=== PATIENT | female | born 1945 | race Caucasian/White ===

== ENCOUNTER 2018-12-31 16:00 | Observation (INO) | payer MEDICARE, BC ==
[~2018-12-31] VITALS: Ht 151.1 cm; Wt 76.5 kg
[2018-12-31 15:23] VITALS: BP 128/60
[~2018-12-31 16:00] MED LIST: LOSA50TA64 PO; PANT40TA25 PO; TYL3 PO
[2018-12-31] MEDS: CEFAZOLIN SODIUM 1 GM VIAL IVP SCH (17:00)
[2019-01-01] VITALS (20 sets, daily range): BP systolic 107–152; BP diastolic 51–69
[2019-01-01] MEDS ORDERED: LACTATED RINGERS 1000ML 1,000 ML IV ONE (11:30)
[2019-01-01] MEDS ORDERED: CEFAZOLIN SODIUM 1 GM VIAL ONE (16:50)
[2019-01-01] MEDS ORDERED: ROCURONIUM 10MG/1ML SYR 10 MG/ML ML ONE (17:04)
[2019-01-01] MEDS ORDERED: SUCCINYLCHOLINE 200MG/10ML SYR ONE (17:04)
[2019-01-01] MEDS ORDERED: FENTANYL CITRATE PF 50 MCG/1 ML 2ML VIAL ONE (17:04)
[2019-01-01] MEDS ORDERED: LIDOCAINE PF 2% 5ML ABBOJECT ONE (17:04)
[2019-01-01] MEDS ORDERED: PROPOFOL 10 MG/ML 20ML VIAL IV ONE (17:04)
[2019-01-01] MEDS ORDERED: ROPIVACAINE 0.5% 5MG/ML 30ML IJ ONE (17:08)
[2019-01-01] MEDS ORDERED: DEXAMETHASONE SOD PHOSPHATE 4 MG/ML 1ML VIAL ONE (17:08)
[2019-01-01] MEDS ORDERED: MIDAZOLAM HCL 1 MG/ML 2ML VIAL ONE (17:13)
[2019-01-01] MEDS ORDERED: EPHEDRINE SULFATE 50 MG/ML AMPULE ONE (17:36)
[2019-01-01] MEDS: CEFAZOLIN SODIUM 1 GM VIAL IVP SCH (17:38)
[2019-01-01] MEDS ORDERED: HYDRALAZINE HCL 20 MG/ML VIAL ONE (18:29)
[2019-01-01] MEDS ORDERED: ONDANSETRON HCL 4 MG/2 ML VIAL ONE (20:15)
[2019-01-01] MEDS: SODIUM CHLORIDE 0.9% 1000ML 1,000 ML IV SCH (20:44)
[2019-01-01] MEDS ORDERED: POTASSIUM CHLORIDE 10% ELIXIR 20 MEQ/15 ML UDCUP PO PRN (20:45)
[2019-01-01] MEDS ORDERED: POTASSIUM CHLORIDE 20 MEQ ERTAB PO PRN (20:45)
[2019-01-01] MEDS ORDERED: DiphenhydrAMINE HCL 50 MG/ML VIAL IVP PRN (20:45)
[2019-01-01] MEDS ORDERED: DIPHENHYDRAMINE HCL 25 MG CAPSULE PO PRN (20:45)
[2019-01-01] MEDS ORDERED: HYDROCODONE/ACETAMINOPHEN 5/325 MG TAB PO PRN (20:45)
[2019-01-01] MEDS ORDERED: LIDOCAINE HCL-MPF 1% 2ML VIAL IVP PRN (20:45)
[2019-01-01] MEDS ORDERED: POTASSIUM CHLORIDE 20MEQ/100ML 100 ML IV PRN (20:45)
[2019-01-01] MEDS: ACETAMINOPHEN EXTRA STRENGTH 500 MG TABLET PO SCH (20:45)
[2019-01-01] MEDS ORDERED: KETOROLAC TROMETHAMINE 30MG/ML ONE (20:51)
[2019-01-01] MEDS ORDERED: MEPERIDINE-PF 25 MG/ML SYG ONE ×2 (21:03→21:15)
--- NOTE | 2019-01-01 21:45 | NUR ---
post op received patient from pacu via bed, patient asleep, easily awoken, no sob, no c/o pain at this time, oxygen at 2 l n/c , right arm with sling intact and ana wrap d/i, right arm/hand swollen, warm to touch, right upper extremity numbness, family member at bedside, teach plan of care and expected outcome, verbalize understanding via teach back
[2019-01-01] MEDS: HYDROCODONE/ACETAMINOPHEN 5/325 MG TAB PO PRN (23:13)
[2019-01-02] VITALS: BP 115/57
[2019-01-02 00:30] VITALS: BP 110/53
[2019-01-02] MEDS ORDERED: CEFAZOLIN SODIUM 1 GM VIAL ONE (00:34)
[2019-01-02 01:00] VITALS: BP 102/52
[2019-01-02] MEDS: CEFAZOLIN SODIUM 1 GM VIAL IVP SCH ×2 (01:54→08:15)
[2019-01-02] MEDS: SODIUM CHLORIDE 0.9% 1000ML 1,000 ML IV SCH (01:56)
[2019-01-02 04:10] VITALS: BP 117/58
[2019-01-02] MEDS: ACETAMINOPHEN EXTRA STRENGTH 500 MG TABLET PO SCH ×2 (04:19→11:56)
[2019-01-02] MEDS: KETOROLAC TROMETHAMINE 15MG/ML IV PRN ×2 (04:19→10:03)
[2019-01-02 04:53] LABS: HEMATOCRIT 31.5 % (36-48); MEAN CORPUSCULAR HEMOGLOBIN 33.5 pg (27.0-33.0); MEAN CORPUSCULAR HGB CONC 35.1 g/dL (32.0-36.0); MEAN CORPUSCULAR VOLUME 95.3 fL (79-99); PLATELET COUNT (AUTO) 246 K/uL (130-400); RED BLOOD CELL COUNT(AUTO) 3.31 MIL/uL (4.00-5.50); RED CELL DISTRIBUTION WIDTH 12.7 % (11.0-15.5); WHITE BLOOD COUNT (AUTO) 7.9 K/uL (4.8-10.8)
[2019-01-02 05:03] LABS: CREATININE 0.8 mg/dL (0.5-1.5); POTASSIUM 3.8 mmol/L (3.5-5.1)
[2019-01-02 08:00] VITALS: BP 120/58
[2019-01-02] MEDS: HYDROCODONE/ACETAMINOPHEN 5/325 MG TAB PO PRN (08:16)
[2019-01-02] MEDS ORDERED: FAMOTIDINE 20MG TAB 20 MG TAB PO SCH (09:00)
[2019-01-02] MEDS ORDERED: LOSARTAN 50 MG TABLET PO SCH (09:00)
[2019-01-02] MEDS ORDERED: POLYETHYLENE GLYCOL 3350 17 GM POWD.PACK PO SCH (09:00)
[2019-01-02] MEDS ORDERED: PANTOPRAZOLE SODIUM 40 MG TABLET.DR PO SCH (09:00)
[2019-01-02] MEDS ORDERED: ENOXAPARIN SODIUM 40 MG/0.4 ML SYRINGE SQ SCH (09:00)
[2019-01-02 11:00] VITALS: BP 114/53
[2019-01-02] MEDS ORDERED: HYDR-4457 PO (11:40)
--- NOTE | 2019-01-02 12:30 | NUR ---
DISCHARGE DISCHARGE TEACHING DONE WITH PATIENT AND USING TEACHBACK METHOD, VERBALIZED UNDERSTANDING. NO NOTED SOB OR DISTRESS. NEW MEDICATION ADMINISTRATION TEACHING DONE WITH PATIENT, VERBALIZED UNDERSTANDING. PT AWARE OF NEED TO SET UP APPOINTMENT WITH DR. NEWBERRY FOR FOLLOW UP. IV REMOVED, CATH TIP INTACT. SLING IN PLACE TO RIGHT ARM. SPLINT AND SLING TEACHING DONE WITH PATIENT, VERBALIZED UNDERSTANDING. PENDING TO BE TRANSFERRED OUT VIA PRIVATE VEHICLE.
[2019-01-03] MEDS ORDERED: BISACODYL 5 MG TABLET.DR PO PRN (20:45)
== END 2019-01-02 12:59 | disposition home or self-care (01) ==
LOC: EDSTATUS 16:00 → DAHIP 01-01 11:22 → 4AH 01-01 20:53
PROVIDERS: ADMIT Orthopaedic Surgery; ATTEND Orthopaedic Surgery
DX: S53.104A Unspecified dislocation of right ulnohumeral joint, initial encounter (principal); S42.401B Unspecified fracture of lower end of right humerus, initial encounter for open fracture; I10 Essential (primary) hypertension; W19.XXXA Unspecified fall, initial encounter; Y93.89 Activity, other specified; Y92.89 Other specified places as the place of occurrence of the external cause; Y99.8 Other external cause status; Z96.653 Presence of artificial knee joint, bilateral; Z87.891 Personal history of nicotine dependence; Z79.899 Other long term (current) drug therapy; Z82.49 Family history of ischemic heart disease and other diseases of the circulatory system; Z90.710 Acquired absence of both cervix and uterus
CPT/HCPCS: 24635; 36415; 76000; 80048; 85027; 88304; 88311; 96372; 96374; 96375; 96376 ×2; A4218; A4565; A4600; A4649; A4930 ×2; A6223; C1729; C1776; G0378 ×27; J0330; J0360; J0690 ×4; J1100; J1650; J1885 ×3; J2001; J2175 ×2; J2250; J2405; J2704; J2795; J3010; J3490; J7030; J7120; Q4051